=== PATIENT | female | born 1975 | race Caucasian/White ===

== ENCOUNTER 2016-08-16 14:19 | Emergency (ER) | payer OTHER | END 2016-08-16 18:27 | disposition home or self-care (01) | LOC: FER 14:19 | DX: J45.909 Unspecified asthma, uncomplicated (principal); F17.210 Nicotine dependence, cigarettes, uncomplicated; Z86.73 Personal history of transient ischemic attack (TIA), and cerebral infarction without residual deficits; Z88.2 Allergy status to sulfonamides; Z88.4 Allergy status to anesthetic agent; Z88.5 Allergy status to narcotic agent; Z79.82 Long term (current) use of aspirin | CPT/HCPCS: 71020; 71100; 94640; 94664; J2930 ==

== ENCOUNTER 2020-09-21 17:44 | Emergency (ER) | payer OTHER ==
[~2020-09-21 17:44] MED LIST: AMBIEN10 MG PO; CEFDINIR300 MG PO; DUONEB 2.5-0.5M1 AMP NEB; NORCO 5-325 TA1 EACH PO; NORVASC5 MG PO; PREDNISONE 20MG20 MG PO; TOPROL XL 50 MG50 MG PO; VENTOLIN (2.5 MG/3 M INH; VIBRAMYCIN100 MG PO; ZPAK PO
[2020-09-21] MEDS ORDERED: IBUPROFEN800 MG PO (21:45)
[2020-09-21] MEDS ORDERED: PERCOCET 5-3251 EACH PO (21:45)
== END 2020-09-21 22:03 | disposition home or self-care (01) ==
LOC: FER 17:44
DX: S83.92XA Sprain of unspecified site of left knee, initial encounter (principal); J44.9 Chronic obstructive pulmonary disease, unspecified; F17.210 Nicotine dependence, cigarettes, uncomplicated; Z88.2 Allergy status to sulfonamides; Z79.899 Other long term (current) drug therapy; W19.XXXA Unspecified fall, initial encounter
CPT/HCPCS: 73564; 96372; J1170; J1885; J2405

== ENCOUNTER 2020-11-24 17:03 | Inpatient (IN) | payer OTHER ==
[~2020-11-24] VITALS: Ht 157.5 cm; Wt 111.1 kg
[~2020-11-24 17:03] MED LIST changes: +IBUPROFEN800 MG PO; +PERCOCET 5-3251 EACH PO
[2020-11-24 18:01] LABS: BASOPHIL 0.5 % (0-2); EOSINOPHIL 0.8 % (0-5); HCT 40.6 % (37.0-47.0); HGB 13.8 g/dl (12.5-16.0); LYMPHOCYTE 17.3 % (15-48); MCH 33.6 pg (25.0-31.0); MCV 98.8 fL (78.0-100.0); MPV 10.2 fL (6.0-9.5); NRBC 0; PLT 342 K/uL (150-400); RBC 4.11 M/uL (4.20-5.40); RDW 14.1 % (11.5-14.0); WBC 14.4 K/uL (4.0-10.5)
[2020-11-24 18:08] LABS: BUN/CREAT RATIO (CALC) 13.6 RATIO; CREATININE 0.88 mg/dL (0.51-0.95); POTASSIUM 3.9 mmol/L (3.5-5.1)
[2020-11-24 18:56] LABS: CORONAVIRUS 2019 SARS-COV-2 NEGATIVE (NEGATIVE); INFLUENZA A NAA NEGATIVE (NEGATIVE)
[2020-11-24] MEDS ORDERED: AMLODIPINE BESY10 MG PO (23:35)
[2020-11-24] MEDS ORDERED: DOXYCYCLINE HY100 MG PO (23:36)
[2020-11-24] MEDS ORDERED: VITAMIN D31250 MCG PO (23:36)
[2020-11-24] MEDS ORDERED: XYZAL5 MG PO (23:37)
[2020-11-24] MEDS ORDERED: VICODIN 10/3251 EACH PO (23:37)
[2020-11-25 03:47] LABS: BASOPHIL 0.1 % (0-2); EOSINOPHIL 0 % (0-5); HCT 39.9 % (37.0-47.0); HGB 13.4 g/dl (12.5-16.0); LYMPHOCYTE 5.3 % (15-48); MCH 33.4 pg (25.0-31.0); MCHC 33.6 g/dL (32.0-36.0); MCV 99.5 fL (78.0-100.0); MONOCYTE 1.7 % (0-12); MPV 9.8 fL (6.0-9.5); NRBC 0; PLT 293 K/uL (150-400); RBC 4.01 M/uL (4.20-5.40); RDW 13.9 % (11.5-14.0); WBC 13.7 K/uL (4.0-10.5)
[2020-11-25 03:53] LABS: NEUTROPHIL 92.4 % (41-80)
[2020-11-25 04:33] LABS: BUN/CREAT RATIO (CALC) 25.5 RATIO; CREATININE 0.51 mg/dL (0.51-0.95)
[2020-11-25 04:40] LABS: POTASSIUM 5.5 mmol/L (3.5-5.1)
[2020-11-25 06:45] LABS: CREATININE 0.6 mg/dL (0.51-0.95); POTASSIUM 4.8 mmol/L (3.5-5.1)
[2020-11-25] MEDS ORDERED: SPIRIVA 18MCG18 MCG INH (14:27)
[2020-11-25] MEDS ORDERED: PREDNISONE 20MG20 MG PO ×2 (14:28→14:30)
[2020-11-25] MEDS ORDERED: SYMBICORT 80-10.2 GM INH (14:28)
[2020-11-25] MEDS ORDERED: CLONAZEPAM0.5 MG PO (14:38)
[2020-11-25] MEDS ORDERED: ROBAXIN500 MG PO (14:38)
== END 2020-11-25 15:20 | disposition home or self-care (01) | DRG 202 ==
LOC: FER 17:03 → FMS 21:27
PROVIDERS: Nurse Practitioner; Nurse Practitioner Family; ADMIT Hospitalist
DX: J45.901 Unspecified asthma with (acute) exacerbation (principal); J44.1 Chronic obstructive pulmonary disease with (acute) exacerbation; F17.210 Nicotine dependence, cigarettes, uncomplicated; Z79.899 Other long term (current) drug therapy; M54.9 Dorsalgia, unspecified; I10 Essential (primary) hypertension; Z85.828 Personal history of other malignant neoplasm of skin; F41.1 Generalized anxiety disorder; Z86.73 Personal history of transient ischemic attack (TIA), and cerebral infarction without residual deficits; F32.9 Major depressive disorder, single episode, unspecified; Z80.3 Family history of malignant neoplasm of breast; Z82.5 Family history of asthma and other chronic lower respiratory diseases; M50.30 Other cervical disc degeneration, unspecified cervical region; Z88.5 Allergy status to narcotic agent; Z88.2 Allergy status to sulfonamides; R00.0 Tachycardia, unspecified; G89.4 Chronic pain syndrome; Z20.822 Contact with and (suspected) exposure to COVID-19
CPT/HCPCS: 36415; 71045; 71275; 80048; 83605; 84145; 85025; 85379; 87040; 93005; 94640; 94664; J0456; J0696; J1100; J1170; J1650; J2930; J7030; J7050; Q9967; U0002

== ENCOUNTER 2020-12-02 23:08 | Emergency (ER) | payer OTHER ==
[~2020-12-02 23:08] MED LIST changes: +AMLODIPINE BESY10 MG PO; +CLONAZEPAM0.5 MG PO; +DOXYCYCLINE HY100 MG PO; +ROBAXIN500 MG PO; +SPIRIVA 18MCG18 MCG INH; +SYMBICORT 80-10.2 GM INH; +VICODIN 10/3251 EACH PO; +VITAMIN D31250 MCG PO; +XYZAL5 MG PO
[2020-12-03 00:56] LABS: BASOPHIL 0.1 % (0-2); EOSINOPHIL 0.1 % (0-5); HCT 41.6 % (37.0-47.0); HGB 14.5 g/dl (12.5-16.0); LYMPHOCYTE 13.3 % (15-48); MCH 33.8 pg (25.0-31.0); MCHC 34.9 g/dL (32.0-36.0); MONOCYTE 4.9 % (0-12); MPV 9.6 fL (6.0-9.5); NEUTROPHIL 80.9 % (41-80); NRBC 0; PLT 362 K/uL (150-400); RBC 4.29 M/uL (4.20-5.40); RDW 14.5 % (11.5-14.0)
[2020-12-03 01:04] LABS: ALBUMIN 3.6 g/dL (3.4-5.0); BILIRUBIN - TOTAL 0.3 mg/dL (0.2-1.0); BUN/CREAT RATIO (CALC) 23.6 RATIO; C-REACTIVE PROTEIN 0.4 mg/dL (<=0.90); CREATININE 0.72 mg/dL (0.51-0.95); GLOBULIN (CALCULATION) 3.4 g/dL; POTASSIUM 3.9 mmol/L (3.5-5.1)
== END 2020-12-03 03:00 | disposition home or self-care (01) ==
LOC: FER 23:08
PROVIDERS: Emergency Medicine
DX: M54.2 Cervicalgia (principal); M54.6 Pain in thoracic spine; G89.29 Other chronic pain; I10 Essential (primary) hypertension; J44.9 Chronic obstructive pulmonary disease, unspecified; F17.210 Nicotine dependence, cigarettes, uncomplicated; Z88.2 Allergy status to sulfonamides
CPT/HCPCS: 36415; 72125; 72128; 80053; 85025; 86140; J1170; J2405